=== PATIENT | female | born 1995 | race Caucasian/White ===

== ENCOUNTER 2025-03-11 12:28 | Emergency (ER) | payer OTHER ==
[~2025-03-11] VITALS: Ht 167.6 cm; Wt 107.0 kg
[2025-03-11] MEDS ORDERED: LEVO100T5 PO (12:50)
[2025-03-11 13:55] LABS: BASO # 0.0 10^3/uL (0.0-0.2); BASO % 0.2 % (0.0-1.0); EOS # 0.0 10^3/uL (0.0-0.5); EOS % 0.2 % (0.0-3.0); LYMPH # 1.1 10^3/uL (1.5-5.0); LYMPH % 13.7 % (24.0-44.0); MONO # 0.5 10^3/uL (0.0-0.8); MONO % 5.6 % (2.0-8.0); NEUTROPHILS # 6.4 10^3/uL (1.5-8.5); NEUTROPHILS % 80.1 % (36.0-66.0); PLATELET COUNT, AUTOMATED 314 10^3/uL (150-450)
[2025-03-11 14:01] LABS: KETONE, URINE AUTO RFX NEGATIVE (NEGATIVE); LEUKOCYTE ESTERASE UR AUTO RFX NEGATIVE (NEGATIVE); NITRITE, URINE AUTO RFX NEGATIVE (NEGATIVE); RBC, URINE AUTO RFX 0 /HPF (0-3); SQUAM EPITHELIAL CELL UR AURFX 0 /HPF (0-6); WBC, URINE AUTO RFX 0 /HPF (0-3)
[2025-03-11 14:19] LABS: HCG, SERUM QUANTITATIVE 48.6 MIU/ML (<4.2)
[2025-03-11 14:20] LABS: ALT/SGPT 959 U/L (7.0-40); AST/SGOT 776 U/L (<34); CALCIUM LEVEL 9.9 MG/DL (8.5-10.1); CARBON DIOXIDE LEVEL 26 MMOL/L (20-31); CHLORIDE LEVEL 105 MMOL/L (98-107); CREATININE FOR GFR 0.63 MG/DL (0.55-1.30); GLOMERULAR FILTRATION RATE > 90.0 (>60); POTASSIUM SERUM 3.9 MMOL/L (3.5-5.1); SODIUM LEVEL 141 MMOL/L (136-145)
[2025-03-11 15:22] LABS: CK-MB VALUE MASS < 1.0 NG/ML (<3.6)
[2025-03-11 15:24] LABS: CPK CREATINE PHOSPHOKINASE 46 U/L (34-145)
[2025-03-11] MEDS: ACETAMINOPHEN *IV* 1,000 MG in IV 1 EA IV ONE (15:27)
[2025-03-11] MEDS: NS (Normal Saline) 0.9% 1,000 ML IV ONE (15:27)
[2025-03-11 19:36] VITALS: BP 131/61; TEMP 98; O2SAT 99
== END 2025-03-11 20:12 | disposition short-term general hospital (02) ==
LOC: M ED 12:28
DX: O26.891 Other specified pregnancy related conditions, first trimester (principal); O99.280 Endocrine, nutritional and metabolic diseases complicating pregnancy, unspecified trimester; K85.90 Acute pancreatitis without necrosis or infection, unspecified; O99.611 Diseases of the digestive system complicating pregnancy, first trimester; K80.20 Calculus of gallbladder without cholecystitis without obstruction; E03.9 Hypothyroidism, unspecified; Z3A.01 Less than 8 weeks gestation of pregnancy; Z79.899 Other long term (current) drug therapy
CPT/HCPCS: 76705; 80048; 80076; 81001; 82550; 82553; 83690; 84484; 84702; 85025; 93005; 96365; 96366; 96375; 99284; J0131; J2765